=== PATIENT | female | born 1995 | race Caucasian/White ===

== ENCOUNTER → 2017-01-29 | Outpatient (REF) | payer OTHER | LOC: M SFHCWAGY 11:13 | PROVIDERS: ATTEND Nurse Practitioner Women's Health | DX: Z12.4 Encounter for screening for malignant neoplasm of cervix (principal) ==

== ENCOUNTER → 2017-07-17 | Outpatient (REF) | payer OTHER | LOC: M LAB REF 13:36 | PROVIDERS: ATTEND Physician Assistant | DX: J02.9 Acute pharyngitis, unspecified (principal) ==

== ENCOUNTER → 2017-07-31 | Outpatient (REF) | payer OTHER ==
[2017-07-31 13:02] LABS: FOLLICLE STIMULATING HORMONE 5.6 mIU/mL
[2017-07-31 13:08] LABS: FREE T4 1.22 NG/DL (0.76-1.46)
== END ==
LOC: M SFHCWAGY 08:58
PROVIDERS: ATTEND Nurse Practitioner Women's Health
DX: N91.2 Amenorrhea, unspecified (principal)

== ENCOUNTER → 2017-11-24 | Outpatient (CLI) | payer OTHER ==
[2017-11-26 00:06] LABS: DEAMIDATED GLIADIN ABS, IgA 3 units (0-19); DEAMIDATED GLIADIN ABS, IgG 3 units (0-19); ENDOMYSIAL ANTIBODY IgA Negative (Negative); IMMUNOGLOBULIN A 55 mg/dL (87-352); t-TRANSGLUTAMINASE(tTG) IgA <2 U/mL (0-3); t-TRANSGLUTAMINASE(tTG) IgG <2 U/mL (0-5)
== END ==
LOC: M WUC 08:43
DX: R10.9 Unspecified abdominal pain (principal)